=== PATIENT | male | born 1975 | race Caucasian/White ===

== ENCOUNTER 2020-05-27 22:03 | Emergency (ER) | payer MEDICARE ==
--- NOTE | 2020-05-28 00:37 | ER Document Report ---
ED Medical Screen (RME) - General Chief Complaint: Flank Pain Stated Complaint: KIDNEY PAIN Time Seen by Provider: 05/28/20 00:32 Mode of Arrival: Ambulatory Information source: Patient Notes: 44-year-old male patient presents the emergency department chief complaint of bilateral flank pain and urinary frequency. Patient denies any dysuria, fever, chills, nausea or vomiting. Patient reports pain has been ongoing for about the last week. Is also reporting episodes where he feels like he may pass out and he has to lay on the ground in order for the episode to resolve. He denies any ongoing medical issues. He does report that he is an amputee and takes buprenorphine for the pain. I have greeted and performed a rapid initial assessment of this patient. A comprehensive ED assessment and evaluation of the patient, analysis of test results and completion of the medical decision making process will be conducted by additional ED providers. I have specifically instructed the patient or family members with the patient to immediately return to any nursing staff should anything change in the patient's condition or with their chief complaint. - Related Data Allergies/Adverse Reactions: Penicillins Allergy (Verified 05/28/20 00:30) Home Medications: Bupamorphine Past Medical History - Social History Chew tobacco use (# tins/day): No Frequency of alcohol use: None Drug Abuse: None, Marijuana Physical Exam - Vital signs Vitals: Temp Pulse Resp BP Pulse Ox 98.4 F 83 16 133/82 H 98 05/27/20 22:23 05/27/20 22:23 05/27/20 22:23 05/27/20 22:23 05/27/20 22:23 Course - Vital Signs Vital signs: Temp Pulse Resp BP Pulse Ox 98.4 F 83 16 133/82 H 98 05/28/20 00:30 05/27/20 22:23 05/27/20 22:23 05/27/20 22:23 05/27/20 22:23
[2020-05-28 01:04] LABS: ABSOLUTE BASOPHILS # (AUTO) 0.1 10^3/uL (0.0-0.2); ABSOLUTE EOSINOPHILS # (AUTO) 0.1 10^3/uL (0.0-0.6); ABSOLUTE LYMPHOCYTES (AUTO) 3.9 10^3/uL (0.5-4.7); ABSOLUTE NEUT (AUTO) 7.5 10^3/uL (1.7-8.2); BASOPHILS % (AUTO) 0.8 % (0-2); EOSINOPHILS % (AUTO) 0.9 % (0-6); HEMATOCRIT 44.9 % (37.9-51.0); LYMPHOCYTES % (AUTO) 30.7 % (13-45); MEAN CORPUSCULAR HGB CONC 35.6 g/dL (32.0-36.0); MEAN CORPUSCULAR VOLUME 87 fl (80-97); MONOCYTES % (AUTO) 7.9 % (3-13); PLATELET COUNT 275 10^3/uL (150-450); RED BLOOD COUNT 5.16 10^6/uL (4.35-5.55); RED CELL DISTRIBUTION WIDTH 12.6 % (11.5-14.0); SEGMENTED NEUTROPHILS % (AUTO) 59.7 % (42-78); TOTAL CELLS COUNTED % (AUTO) 100 %; WHITE BLOOD COUNT 12.6 10^3/uL (4.0-10.5)
[2020-05-28 01:11] LABS: APPEARANCE,URINE SLIGHTLY-CLOUDY; BILIRUBIN,URINE NEGATIVE (NEGATIVE); COLOR,URINE YELLOW; GLUCOSE, URINE NEGATIVE (NEGATIVE); KETONES,URINE NEGATIVE (NEGATIVE); LEUKOCYTE ESTERASE,URINE NEGATIVE (NEGATIVE); NITRITE,URINE NEGATIVE (NEGATIVE); PROTEIN,URINE NEGATIVE (NEGATIVE); URINE SPECIFIC GRAVITY 1.018
[2020-05-28 01:17] LABS: ALBUMIN 4.4 g/dL (3.5-5.0); ALKALINE PHOSPHATASE 68 U/L (38-126); ANION GAP 6 (5-19); ASPARTATE AMINO TRANSFERASE 23 U/L (17-59); BILIRUBIN,TOTAL 0.4 mg/dL (0.2-1.3); BLOOD UREA NITROGEN 11 mg/dL (7-20); CALCIUM 9.8 mg/dL (8.4-10.2); CARBON DIOXIDE 32 mmol/L (22-30); CHLORIDE 102 mmol/L (98-107); GLUCOSE 97 mg/dL (75-110); POTASSIUM 4.8 mmol/L (3.6-5.0); TOTAL PROTEIN 7.6 g/dL (6.3-8.2)
--- NOTE | 2020-05-28 03:53 | ER Document Report ---
ED General - General Chief Complaint: Flank Pain Stated Complaint: KIDNEY PAIN Time Seen by Provider: 05/28/20 00:32 Mode of Arrival: Ambulatory Information source: Patient Notes: 05/28/20 00:32 - ED Nursing Note by SADIA BOWEN [facility] Num: [id number] : 1975 Patient Age: 44 Pt reports chronic bilateral flank pain that's worsening x4 days. Pt reports ur inary frequency and urgency, denies pain with urination. Pt reports lack of sleep last night from the pain. Reports episodes where he's about to pass out, where he has to lay down on floor to relieve symptoms. Initialized on 05/28/20 00:32 - END OF NOTE J Luis notes 44-year-old male patient presents the emergency department chief complaint of bilateral flank pain and urinary frequency. Patient denies any dysuria, fever, chills, nausea or vomiting. Patient reports pain has been ongoing for about the last week. Is also reporting episodes where he feels like he may pass out and he has to lay on the ground in order for the episode to resolve. He denies any ongoing medical issues. He does report that he is an amputee and takes buprenorphine for the pain. my notes 44-year-old male arrives with chief complaint of bilateral flank pain actually pointing to his LS spine para spinal musculature. Patient reports he fell in 2010 off of a 30 foot roof injuring his left leg and causing multiple problems and resulting in amputation of his left lower extremity. He is wearing a prosthesis at this time which she is cleaning out with bleach when I introduce myself. Patient reports on and off his symptoms of low back pain have been present for more than 1 month but today began to be very intense 10 out of 10. Patient did hear a click in his toilet and believes he did pass a kidney stone. TRAVEL OUTSIDE OF THE [place] IN LAST 30 DAYS: No - HPI Onset: This morning Onset/Duration: Sudden Quality of pain: Achy Severity: Severe Pain Level: 4 Associated symptoms: None Exacerbated by: Movement Relieved by: Remaining still - And laying on left side Similar symptoms previously: Yes Recently seen / treated by doctor: No - Related Data Allergies/Adverse Reactions: Penicillins Allergy (Verified 05/28/20 00:30) Home Medications: Bupamorphine Past Medical History - General Information source: Patient - Social History Smoking Status: Current Every Day Smoker Chew tobacco use (# tins/day): No Frequency of alcohol use: None Drug Abuse: None, Marijuana Lives with: Family Family History: Reviewed & Not Pertinent Patient has suicidal ideation: No Patient has homicidal ideation: No Review of Systems - Review of Systems Constitutional: No symptoms reported EENT: No symptoms reported Cardiovascular: No symptoms reported Respiratory: No symptoms reported Gastrointestinal: No symptoms reported Genitourinary: No symptoms reported Male Genitourinary: No symptoms reported Musculoskeletal: See HPI, Back pain Skin: No symptoms reported Hematologic/Lymphatic: No symptoms reported Neurological/Psychological: No symptoms reported Physical Exam - Vital signs Vitals: Temp Pulse Resp BP Pulse Ox 98.4 F 83 16 133/82 H 98 05/27/20 22:23 05/27/20 22:23 05/27/20 22:23 05/27/20 22:23 05/27/20 22:23 Interpretation: Normal - General General appearance: Alert - HEENT Head: Normocephalic, Atraumatic Eyes: Normal Pupils: PERRL Mouth/Lips: Normal Mucous membranes: Normal Pharynx: Normal Neck: Normal - Respiratory Respiratory status: No respiratory distress Chest status: Nontender Breath sounds: Normal Chest palpation: Normal - Cardiovascular Rhythm: Regular Heart sounds: Normal auscultation Murmur: No - Abdominal Inspection: Normal Distension: No distension Bowel sounds: Normal Tenderness: Nontender Organomegaly: No organomegaly - Rectal Hemorrhoids: Other - deferred - Genitourinary Scrotum: Other - deferred - Back Back: Tender - cale LS paraspinal mm - Extremities General upper extremity: Normal inspection General lower extremity: Other - Status post left BKA with prosthesis - Neurological Neuro grossly intact: Yes Cognition: Normal Orientation: AAOx4 Harish Coma Scale Eye Opening: Spontaneous Harish Coma Scale Verbal: Oriented [place] Coma Scale Motor: Obeys Commands Harish Coma Scale Total: 15 Speech: Normal Motor strength normal: LUE, RUE, LLE, RLE Sensory: Normal - Psychological Associated symptoms: Normal affect - Skin Skin Temperature: Warm Skin Moisture: Dry Course - Vital Signs Vital signs: Temp Pulse Resp BP Pulse Ox 98.5 F 86 16 132/62 H 98 05/28/20 01:49 05/28/20 01:49 05/28/20 01:49 05/28/20 01:49 05/28/20 01:49 - Laboratory Result Diagrams: 05/28/20 00:45 05/28/20 00:45 Laboratory results interpreted by me: 05/28/20 05/28/20 05/28/20 00:45 00:45 00:45 WBC 12.6 H Carbon Dioxide 32 H Urine Urobilinogen 2.0 H - Diagnostic Test Radiology reviewed: Reports reviewed Critical Care Note - Critical Care Note Comments: I discussed these findings with the patient and advised him of a negative CT abdomen pelvis and lab work and urinalysis. Discharge - Discharge Clinical Impression: Musculoskeletal back pain Back pain Qualifiers: Back pain location: low back pain Chronicity: chronic Back pain laterality: bilateral Sciatica presence: without sciatica Qualified Code(s): M54.5 - Low back pain Condition: Good Disposition: HOME, SELF-CARE Additional Instructions: Follow-up with personal doctor about your pain; return to ER as needed; take medicines as directed ;encourage fluids avoid bending twisting or lifting until seen by personal doctor. Prescriptions: Etodolac [Lodine] 400 mg PO BID PRN #14 tablet PRN Reason: Chlorzoxazone [Parafon Forte Dsc 500 Mg Tablet] 500 mg PO BID #20 tablet
--- NOTE | 2020-05-28 05:03 | RADIOLOGY REPORT (SQ) ---
EXAM: CT Abdomen and Pelvis Without Intravenous Contrast EXAM DATE/TIME: 05/28/2020 4:38 AM CLINICAL HISTORY: The patient is 44 years old and is Male; bilateral flank pain ;kidney stone in toilette TECHNIQUE: Axial computed tomography images of the abdomen and pelvis without intravenous contrast. Sagittal and coronal reformatted images were created and reviewed. This CT exam was performed using one or more of the following dose reduction techniques: automated exposure control, adjustment of the mA and/or kV according to patient size, and/or use of iterative reconstruction technique. COMPARISON: No relevant prior studies available. FINDINGS: LUNG BASES: Unremarkable. No mass. No consolidation. ABDOMEN: LIVER: Unremarkable. No obvious liver masses appreciated on this non-contrast exam. GALLBLADDER AND BILE DUCTS: Unremarkable. No calcified stones. No significant biliary ductal dilatation. PANCREAS: Unremarkable. No ductal dilation. SPLEEN: Unremarkable. No splenomegaly. ADRENALS: Unremarkable. No adrenal nodules or masses identified. KIDNEYS AND URETERS: Small bilateral renal cysts. No obvious solid renal mass. No hydronephrosis. No renal or ureteral stones. No significant perinephric inflammatory changes. STOMACH AND BOWEL: No evidence of bowel obstruction. No significant bowel wall thickening appreciated. PELVIS: APPENDIX: The appendix is unremarkable. BLADDER: Unremarkable. No stones. REPRODUCTIVE: Unremarkable as visualized. ABDOMEN and PELVIS: INTRAPERITONEAL SPACE: Unremarkable. No free air. No significant fluid collection. BONES/JOINTS: No acute fracture. No dislocation. SOFT TISSUES: No significant abnormalities in the superficial soft tissues. VASCULATURE: Atherosclerotic calcifications are noted. No aortic aneurysm. LYMPH NODES: No significant lymph node enlargement. IMPRESSION: No acute findings in the abdomen or pelvis.
[2020-05-28] MEDS ORDERED: KETOROLAC TROMETHAMINE 60 MG/2 ML SDV IM ONE (05:26)
[2020-05-28] MEDS ORDERED: HYDROCODONE/ACETAMINOPHEN 5-325 MG (6 TAB/ER DISP) PO PRN (05:26)
[2020-05-28 06:04] VITALS: BP 126/78
== END 2020-05-28 06:04 | disposition home or self-care (01) ==
LOC: ER 22:03
DX: R07.89 Other chest pain (principal); M54.5 Low back pain; R10.9 Unspecified abdominal pain; R35.0 Frequency of micturition; F17.200 Nicotine dependence, unspecified, uncomplicated; Z88.0 Allergy status to penicillin
CPT/HCPCS: 99284; 96372; 36415; 85025; 80053; 81001; 74176; J1885; A9270